=== PATIENT | female | born 1950 | race Caucasian/White ===

== ENCOUNTER → 2019-08-25 | Emergency (ER) | payer MEDICARE, OTHER ==
[~2019-08-25] VITALS: Ht 157.5 cm; Wt 39.9 kg
[~2019-08-25] MED LIST: ACETAMINOPHEN500 MG PO; NORCO 5-325 TA1 EACH PO
--- OUTSIDE RECORDS SUMMARY | ~2019-08-25 | XMS | Clinical Summary ---
Demographics + + + | Address | [address] | | | [place] [address] | + + + | Home Phone | | + + + | Preferred Language | Unknown | + + + | Marital Status | Single | + + + | Synagogue Affiliation | 1027 | + + + | Race | Unknown | + + + | Ethnic Group | Unknown | + + + Author + + + | Author | [facility] | | | and [place] | + + + | Organization | [facility] | | | and [place] | + + + | Address | Unknown | + + + | Phone | Unavailable | + + + Support + + +---------+ + | Name | Relationship | Address | Phone | + + +---------+ + | MARION BENNETT | ECON | Unknown | | + + +---------+ + Care Team Providers + +------+ + | Care Sound Technician Supervisor Name | Role | Phone | + +------+ + PCP | Unavailable | + +------+ + Allergies Not on File Medications Not on file Active Problems Not on file Social History + +-------+ +--------+------+ | Tobacco Use | Types | Packs/Day | Years | Date | | | | | Used | | + +-------+ +--------+------+ | Never Assessed | | | | | + +-------+ +--------+------+ + + + | Sex Assigned at | Date Recorded | | | | + + + | Not on file | | + + + + + + + | Job Start Date | Occupation | Industry | + + + + | Not on file | Not on file | Not on file | + + + + + + + + | Travel History | Travel Start | Travel End | + + + + + + | No recent travel history available. | + + Last Filed Vital Signs Not on file Plan of Treatment + + + + + | Health Maintenance | Due Date | Last Done | Comments | + + + + + | Vaccine: | | | | | Dtap/Tdap/Td (1 - | 0 | | | | Tdap) | | | | + + + + + | Vaccine: Zoster (1 | | | | | of 2) | 1 | | | + + + + + | Breast Cancer | | | | | Screening | 6 | | | + + + + + | Vaccine: | | | | | Pneumococcal 65+ | 6 | | | | Low/Medium Risk (1 | | | | | of 2 - PCV13) | | | | + + + + + | Vaccine: Influenza | | | | | (#1) | 9 | | | + + + + + Results Not on filefrom Last 3 Months"
--- OUTSIDE RECORDS SUMMARY | ~2019-08-25 | XMS | Clinical Summary ---
Demographics + + + | Address | [address] | | | [place] [address] | + + + | Home Phone | | + + + | Preferred Language | Unknown | + + + | Marital Status | Single | + + + | Yarsani Affiliation | 1027 | + + + | Race | Unknown | + + + | Ethnic Group | Unknown | + + + Author + + + | Author | [facility] | | | and [place] | + + + | Organization | [facility] | | | and [place] [...] Team Providers + +------+ + | Care Workers Compensation Legal Secretary Name | Role | Phone | + [...]
== END ==
LOC: ED 10:27
DX: S42.202A Unspecified fracture of upper end of left humerus, initial encounter for closed fracture (principal); F17.200 Nicotine dependence, unspecified, uncomplicated; W18.30XA Fall on same level, unspecified, initial encounter
CPT/HCPCS: 73060; 99283

== ENCOUNTER 2022-04-26 14:20 | Emergency (ER) | payer MEDICARE, OTHER ==
[~2022-04-26] VITALS: Ht 157.5 cm; Wt 39.9 kg
--- NOTE | ~2022-04-26 | EKG ---
[facility] [address] [place], [place] [address] Draft EK completed, results pending confirmation PATIENT NAME: JOSE BENNETTZoran SCOTT Electrocardiogram DATE OF : 52 PHYSICIAN: PRELIMINARY REPORT #: [id number] REPORT IS CONFIDENTIAL AND NOT TO BE RELEASED WITHOUT AUTHORIZATION
[2022-04-26] MEDS ORDERED: FEOSOL325 MG PO (18:41)
[2022-04-27] MEDS ORDERED: VENTOLIN HFA18 GM INH (18:27)
[2022-04-27] MEDS ORDERED: QVAR REDIHALE10.6 GM INH (18:27)
== END 2022-04-26 19:35 | disposition home or self-care (01) ==
LOC: ED 14:20
DX: D64.9 Anemia, unspecified (principal); F17.200 Nicotine dependence, unspecified, uncomplicated
CPT/HCPCS: 36415; 36430; 71045; 80053; 83735; 84484; 85018; 85025; 85060; 85379; 86850; 86900; 86901; 86922; 87502; 93005; 93010; 99284-25; U0003

== ENCOUNTER 2022-08-28 13:03 | Inpatient (IN) | payer MEDICARE, OTHER ==
[~2022-08-28] VITALS: Ht 157.5 cm; Wt 39.0 kg
[~2022-08-28 13:03] MED LIST changes: +FEOSOL325 MG PO; +QVAR REDIHALE10.6 GM INH; +VENTOLIN HFA18 GM INH
--- NOTE | 2022-08-28 22:17 | NUR ---
PATIENT ARRIVED TO THE FLOOR VIA STRETCHER. PATIENT XFERED TO BED BY STAFF. PATIENTS ADMISSION COMPLETED. ASSESMENT COMPLETED. PATIENT DENIES ANY PAIN AT REST ONLY W/MOVEMENT. PATIENT IS ON 2L VIA NC AND IS NOT CHRONIC. PATIENTS RIGHT ARM IS IN A CUFF AND COLOR. PATIENT PLACED IN HOSPITAL GOWN. VITALS TAKEN AND RECORDED. PUSH BUTTON CALL LIGHT PROVIDED. PATIENT IS AAOX4. PATIENT DENIES ANY NEEDS AT THIS TIME. ORIENTED TO FLOOR, CALL LIGHT AND PLAN OF CARE.
--- NOTE | 2022-08-28 23:14 | NUR ---
PATIENT IS RESTING IN BED WITH EYES CLOSED, RR 16. CALL LIGHT IN REACH. BED ALARM ON FOR SAFETY.
--- NOTE | 2022-08-29 00:26 | NUR ---
PATIENT ASSISTED TO REPOSITION. PATIENT RATES PAIN AT A 2/10 AND DENIES THE NEED FOR PAIN MEDICATION AT THIS TIME. PATIENT DENIES ANY FURTHER NEEDS. CALL LIGHT IN REACH.
--- NOTE | 2022-08-29 02:17 | NUR ---
PATIENT ASSISTED TO THE BEDPAN. PATIENT ABLE TO VOID. VITALS TAKEN AND RECORDED. INTAKE AND OUTPUT RECORDED. PATIENT REPOSITIONED IN BED. PATIENT RATES PAIN AT A 5/10, PRN PAIN MEDICATION GIVEN PER ORDER. PATIENT PROVIDED A SNACK AND SIPS OF WATER. PATIENT DENIES ANY FURTHER NEEDS. CALL LIGHT IN REACH. BED ALARM ON FOR SAFETY.
--- NOTE | 2022-08-29 03:57 | NUR ---
PATIENT IS RESTING IN BED WITH EYES CLSOED, RR 17. CALL LIGHT IN REACH.
--- NOTE | 2022-08-29 05:56 | NUR ---
VITALS TAKEN AND RECORDED. INTAKE AND OUTPUT RECORDED. PATIENT RATES PAIN AT A 1/10 AND DENIES THE NEED FOR PAIN MEDICATION AT THIS TIME. PATIENT REPOSITIONED IN BED. PATIENT ASSISTED TO TAKE SIPS OF WATER. PATIENT DENIES ANY NEEDS. CALL LIGHT IN REACH.
--- NOTE | 2022-08-29 07:19 | NUR ---
RECIEVED SHIFT REPORT. PT LAYING IN BED AWAKE DRINKING HOT FERNANDO. WITH SLD TEACHER AT BEDSIDE. CALL BUTTON IN REACH.
--- NOTE | 2022-08-29 09:40 | NUR ---
PT C/O 03/13 RIGHT ARM PAIN, GIVEN PRN PAIN MEDICATIONS. DENIES FURTHER NEEDS AT THIS TIME. CALL LIGHT IN REACH.
--- NOTE | 2022-08-29 10:37 | NUR ---
PT IN BED RESTING. DENIES ANY PAIN AT THIS TIME. REMOVED OXYGEN. PT DENIES FURTHER NEEDS AT THIS TIME.
--- NOTE | 2022-08-29 11:23 | NUR ---
PT RESTING IN BED. CASE MANAGEMENT AT BEDSIDE. CALL BUTTON IN REACH.
--- NOTE | 2022-08-29 11:52 | NUR ---
Patient fell at home and broke right Humerus. Unable to use walker. MD will Fix Fracture this week.Patient will need help with mobility because she can no longer use her walker or wheelchair until FX. is healed
--- NOTE | 2022-08-29 12:13 | NUR ---
PT COMPLAINED OF PAIN AT THIS TIME. EXPLAINED PRN MEDICATION SCHEDULE AND PT WAS COMPLIANT WITH WAITING. CALL BUTTON WITHIN REACH. DENIES FURTHER NEEDS.
--- NOTE | 2022-08-29 13:09 | NUR ---
PT RESTING IN BED, EYES CLOSED. CALL LIGHT WITHIN REACH.
--- NOTE | 2022-08-29 14:35 | NUR ---
PT LAYING IN BED RESTING. DENIES FURTHER NEEDS AT THIS TIME. CALL LIGHT WITHIN REACH.
--- NOTE | 2022-08-29 15:28 | NUR ---
PT LAYING IN BED AWAKE. PT STATES PAIN LEVEL REMINS THE SAME 5/10 FROM LAST GIVEN PRN MEDICATION AND IS AWARE OF SCHEDULE. PT RIGHT EXTREMITY ELEVATED ON A PILLOW. DENIES ANY FURTHER NEEDS AT THIS TIME. PUSH BUTTON IN REACH.
--- NOTE | 2022-08-29 16:45 | NUR ---
PT LAYING IN BED AWAKE. DENIES FURTHER NEEDS. CALL LIGHT WITHIN REACH.
--- NOTE | 2022-08-29 21:37 | NUR ---
pt repositioned in bed, used urinal, very sensitive to movement. voided, repoositioned again. R arm sling in place, edematous at shoulder area, moves it slightly, pulses present. coop with assessment. SL [facility] patent
--- NOTE | 2022-08-29 22:24 | NUR ---
HOB ELEVATED, R ARM SLING IN PLACE, EYES CLOSED, NO DISTRESS, CALL LIGHTT AND FLUIDS AT HANDS REACH
--- NOTE | 2022-08-30 01:32 | NUR ---
PT USED CALL LIGHT, UP TO BEDPAN, VOIDED, C/O 5/10 R ARM PAIN, MEDICATED WITH 1 NORCO, REPOSITIONED AND TURNED, COOP
--- NOTE | 2022-08-30 03:43 | NUR ---
NO FURTHER C/O PAIN, EYES CLOSED, ON ROOM AIR, SLING R ARM
--- NOTE | 2022-08-30 04:21 | NUR ---
PT ON ROOM AIR, NO DISTRESS, SLING R ARM, ELEVATED WITH PILLOWS, . CALL LIGHT AT BEDSIDE
--- NOTE | 2022-08-30 05:29 | NUR ---
HOB ELEVATED, IN ROOM AIR, NO DISTRESS, C/O 5/10 R ARM PAIN. SLING INPLACE, TENDER, PAINFUL TO MOVEMENT, MEDICATED WITH NORCO 1 TAB. PLEASANT AND COOP. TOLERATING SIPS OF FLUIDS WELL. HELPED WITH REPOSITIONING
--- NOTE | 2022-08-30 07:15 | NUR ---
RECIEVED SHIFT REPOR. PT RESTING IN BED, EYES CLOSED. CALL LIGHT WITHIN REACH.
--- NOTE | 2022-08-30 08:45 | NUR ---
ASSESSMENT COMPLETE. PT STATES SHE IS IN PAIN BUT IS AWARE OF THE PRN SCHEDULE. RIGHT SHOULDER SLING IN PLACE AND ELEVATED ON A PILLOW. TALKED WITH PATIENT REGARDING GETTING UP AND MOVING AROUND, IN WHICH PT REFUSES TO DO SO. IV DRESSING CHANGED AT THIS TIME. PT CONTIUNES TO BE ANXIOUS WITH THE POC AND HAVING TO GET UP AND MOVE AROUND. CALL LIGHT WITHIN REACH.
--- NOTE | 2022-08-30 08:45 | NUR ---
CAlled and spoke with Tacho from [facility]. They have hemicrutch to loan. Asked if they could hold for this pt. He states they will only hold equipment for 1 day.
--- NOTE | 2022-08-30 09:15 | NUR ---
Faxed chart to [facility] after speaking with Dr. Reyes. He would like pt place for therapy. Pt is agreeable to go. Pt has not been vaccinated for covid and this maybe an issue.
--- NOTE | 2022-08-30 09:30 | NUR ---
PT C/O 04/13 RIGHT ARM PAIN, GIVEN PRN NORCO SEE EMAR. DENIES FURTHER NEEDS AT THIS TIME. CALL LIGHT IN REACH.
--- NOTE | 2022-08-30 10:15 | NUR ---
IN ROOM TO REPOSITION PT. PT ASKS "WHY DO YOU HAVE TO DO THAT I CAN MOVE AND LIFT MY BUTT JUST FINE". EXPLAINED TO PT THE HOW THIS WILL DECREASE THE CHANCE OF POTENTIAL BEDSORES DUE TO NOT GETTING UP AND MOVING AROUND. PT CONTIUNED TO SAY SHE WAS NOT GETTING UP OUT OF BED. PT REPOSITIONED WITH PILLOW UNDER LEFT HIP AND RIGHT ARM ON A PILLOW. PT NOT SATISFIED BUT WAS WILLING TO "TRY IT".
--- NOTE | 2022-08-30 10:50 | NUR ---
Spoke with pt and she is willing to go to a SNF. Let her know [facility] is not currently taking pts. She is agreeable for [facility]. Pt has not been vaccinated. Faxed chart to [facility].
--- NOTE | 2022-08-30 12:27 | NUR ---
PT ABLE TO STAND 2PA, PIVOT, WITH THE USE OF JANETT-WALKER. PT WAS GIVEN DILUADID (SEE EMRAR) PRIOR TO TRANSFER. PT TOLERATED WELL. LEGS ELEVATED, CALL BUTTON IN REACH.
--- NOTE | 2022-08-30 13:00 | NUR ---
Recieved text from [facility]. They will not accept this pt as there is not a save discharge plan. 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
[2022-08-30] MEDS ORDERED: QVAR REDIHALE10.6 G1 INH (13:21)
--- NOTE | 2022-08-30 13:30 | NUR ---
Texted Yulia from OT. Let her know [facility] has a hemicrutch available and I will ask if family will knot picker cloth. She states pt is refusing all therapy. Will wait until after her surgery to see what pt will need.
--- NOTE | 2022-08-30 14:18 | NUR ---
PT C/O 03/13 RIGHT ARM PAIN, GIVEN PRN NORCO. PT REQUESTS TO GO BACK TO BED, SPOKE AT LENGTH REGARDING BEING OUT OF BED, PT CONTINUES TO REQUEST GOING TO BED. ASSISTED 2 PERSON PIVOT TO BED FROM RECLINER. SCDS PLACED. PT DENIES FURTHER NEEDS AT THIS TIME. CALL LIGHT IN REACH.
--- NOTE | 2022-08-30 15:00 | NUR ---
Received a call from Gauri Rich at [facility] with questions regarding this pt. 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 Pt is over income and will not qualify.
[2022-08-30] MEDS ORDERED: IRON325 M1 PO (15:07)
[2022-08-30] MEDS ORDERED: VITAMIN D325 MCG PO (15:07)
--- NOTE | 2022-08-30 15:08 | NUR ---
MED REC COMPLETE
--- NOTE | 2022-08-30 15:48 | NUR ---
PT LAYING IN BED, AWAKE. DENIES ANY NEEDS AT THIS TIME. STATES PAIN IS 4/10 BUT TOLERABLE. CALL LIGHT WITHIN REACH.
--- NOTE | 2022-08-30 16:56 | NUR ---
TIA AND I GAVE PATIENT A BED BATH ALSO WE PUT LOTION ON HER LEGS AND FEET. NEW GOWN AND SHEET. WHILE I WAS AT LUNCH AT NOON TIA CHANGED THE BED LINENS.
--- NOTE | 2022-08-30 18:21 | NUR ---
PT LAYING IN BED, COMPALING OF PAIN 04/13. PRN NORCO GIVEN (PER EMAR). CALL BUTTON IN REACH. DENIES FURTHER NEEDS AT THIS TIME.
--- NOTE | 2022-08-30 21:34 | NUR ---
r arm in sling, tender to tocuh, increaed edema noted at R chest and shoulder area. moves arms very slow, up to bedpan, voided, skin care, repositioned in bed. sl patent LFA. tolerating liquids well. aware of NPO after midnight and wipedown and bed changing in am, stated understanding. uses call light
--- NOTE | 2022-08-30 22:33 | NUR ---
repositioned in bed, c/o R arm pain, elevated w sling, and pillows, good cms, tender. Medicated with [place] 6/10 R amr pain. cooperative, aware of NPO after midnight
--- NOTE | 2022-08-31 00:39 | NUR ---
AWAKE, FLUIDS REMOVED EARLIER, NPO. USED BEDPAN, VOIDED, REPOSITIONED IN BED, ORAL SWABS AT BEDSIDE, CALL LIHGT AT HANDS REACH.R AMS SLING IN PLACE.
--- NOTE | 2022-08-31 04:27 | NUR ---
Pt c/o 05/13 R arm pain, medicated with 1norco and took with small sips of water, repositioned in bed, voided using urinal, Otherwise has been NPO since midnight
--- NOTE | 2022-08-31 05:11 | NUR ---
Pt medicated with DIlaudid 0.5mg IV per 06/13 R amr pain, pe up to chair chloxenedine wipe down done, R arm sling in place. painful, reassured. complete bed change and gown chaged, clean SCDS in place. pivot transfer utilized when going from bed to chair, after many cues, pt reassaured, afraid of falling. Screaming and anxious, reassured and calmed down. on return she require 2PA, slow unsteady gait but much calme/anxious but able to follow instructuctions better, backa to bed tolerated better.R arm elevated with pillows has declined ice to area since admission. call lihgt at bedside, oral care done. preop and post op expectation given verbally, reassured cont to reinforce teaching
--- NOTE | 2022-08-31 07:00 | NUR ---
Report from Katherine Sierra RN. Patient resting in bed with eyes closed, respirations even and unlabored. Sling remains in place. Allowed to rest at this time.
--- NOTE | 2022-08-31 07:50 | NUR ---
PATIENT TAKEN TO SURGERY BY ELISSA MCGEE, IN BED.
--- NOTE | 2022-08-31 10:13 | NUR ---
OVER TO CHECK IN ON PATIENT, PATIENT CURRENTLY IN OR. WILL CHECK BACK WITH PATIENT AT A LATER TIME.
--- NOTE | 2022-08-31 11:19 | NUR ---
08/31/22 Walter9 [place] 1115- PT ARRIVES TO PACU NONAROUSABLE TO STIMULI WITH AN OPA IN PLACE. RESP EVEN AND UNLABORED. OXYGEN SAT HIGH 100% ON 6L VIA MASK. ICE PACK APPLIED TO PT'S RIGHT ARM WITH GOWN IN BETWEEN ICE PACK AND SKIN.
--- NOTE | 2022-08-31 11:45 | NUR ---
Patient returns from PACU in bed with ELISSA Aguilera. Patient alert and oriented. Vitals obtained. Ice over right shoulder, arm in sling. Dressings X2 to right shoulder C/D/I. Denies pain at this time. Pulses and cap refill to right arm WNL.
--- NOTE | 2022-08-31 12:37 | NUR ---
Report to ELISSA Coppola
--- NOTE | 2022-08-31 12:51 | NUR ---
1 PERSON ASSIST TO BSC, CONTINENT OF URINE. RETURNS TO BED. DENIES PAIN AT THIS TIME. VITAL OBTAINED, ASSIST TO REPOSITION. OXYGEN DECREASED TO 1L/MIN PER NC OXYGEN PER PATIENT REQUEST, SHE WOULD LIKE TO HAVE IT REMOVED.
--- NOTE | 2022-08-31 13:48 | NUR ---
3RD SET OF POST OP VIALS DONE, STABLE. O2 91% ON 2l PER NC. PT STATES PAIN 3/10 IN RIGHT WRIST/FORARM. REPOSITIONED ARM ON PILLOW FOR COMFORT. PT TRIED TO HAVE ORANGE JUICE BUT DIDN'T LIKE IT. OFFERED JELLO, OTHER ITEMS ON CLEARS TRAY, PT DECLINED. CALL LIGHT AND PERSONAL ITEMS IN REACH, PT STATED NO FURTHER NEEDS.
--- NOTE | 2022-08-31 15:38 | NUR ---
PT CALLED TO ASK FOR PAIN MEDICATION. PT STATES SHE HAS 7/10 PAIN IN BOTH ARMS. PRN NORCO GIVEN ALONG WITH CRACKERS. DR SALINAS IN TO SEE PT WELL. PAIN IN BED, SCD'S ON, CALL LIGHT AND PERSONAL ITEMS IN REACH.
--- NOTE | 2022-08-31 17:51 | NUR ---
IN ROOM TO ADMINISTER IV ABX. PT SITTING UP IN BED EATING DINNER. 25% OF MEAL TAKEN. PAIN IN RIGHT ARM AT 4/10. PT REQUESTING HELP WITH TV CLICKER IT IS HARD FOR HER TO PUSH THE BUTTONS WITH HER NONDOMINANT HAND. NO OTHER NEEDS AT THIS TIME. CALL LIGHT AND PERSONAL ITEMS IN REACH.
--- NOTE | 2022-08-31 18:00 | NUR ---
PATIENT IN BED AFTER MEAL. VITALS AND I/O'S COMPLETED. PT HAS NO OTHER NEEDS AT THIS TIME. CALL LIGHT IN REACH.
--- NOTE | 2022-08-31 19:21 | NUR ---
oNE TAB NORCO 5/325MG PO ADMIN FOR REPORTED 6/10 RIGHT ARM PAIN.
--- NOTE | 2022-08-31 19:54 | NUR ---
Pt was medicated at change of shift per R arm pain. awake, alert and oriented. on 1LNC, post op CPOX in place. R arm in sling, x2 dressings Opticot covered w opsite intact with old drainage. good CMS, tender, fresh ice to area. Turned and repositioned after several cues. Call light and fresh fluids at hands reach
--- NOTE | 2022-08-31 19:55 | NUR ---
IN ROOM TO ASSIST PRIMARY RN GINA WITH BOOSTING pt. pt AWAKE AND RESTING IN BED, CPOX IN PLACE. pt VERY PARTICULAR WITH CARES, pt REFUSES TO WEAR ATTENDS AND ALSO REFUSED TO LET [employer] AGENT PLACE CHUCKS UNDER pt. pt EDUCATED ON PURPOSE OF CHUCKS AND THAT IT ALLOWS FOR EASIER CLEANUP. pt THEN AGREED TO ALLOW STAFF TO PLACE CHUCKS UNDER DRAWSHEET. FRESH WATER ALSO PROVIDED. NO ADDITIONAL NEEDS, CALL LIGHT IN REACH.
--- NOTE | 2022-08-31 22:25 | NUR ---
PATIENT UP TO BSC 1 PERSON STBY, PATIENT ABLE TO STAND SELF TRANSFER TO BSC. VOIDED 185 ML OF CLOUDY URINE. PATIENT THEN ABLE TO SELF TRANSFER BACK TO BED, ACTIVITY TO TOILET TOOK 25 MINUTES WITH PATIENT'S SMALL STEPS TO BED. ONCE BACK TO BED PATIENT RATED PAIN 6/10 ON PAIN SCALE, STATED TOLERABLE BUT REQUESTING PAIN MEDICAITON WHEN TIME ALLOWS. OXYGEN ON ROOM AIR 89%, PLACED BACK ON 2L WITH CONT PULSE OX. SCDS ON, CHANGED BEDDING. CALL LIGHT AND PERSONAL BELONGINGS WITHIN REACH. REPORTED FINDINGS TO PRIMARY NURSE GINA BOWERS.
--- NOTE | 2022-08-31 23:28 | NUR ---
C/O 10/10 R ARM PAIN, ARM SLING IN PLACE, ICE TO AREA , ELEVATED WITH PILLOWS, GOOD CMS. MEDICATED WITH NORCO 1 TAB, TOLERATING SIPS OF FLUIDS. WORKED WITH IS , UP TO 600, COOPERATIVE, CALL LIGHT ART HANDS REACH
--- NOTE | 2022-09-01 01:20 | NUR ---
awake, c/o mild pain r arm with turning and repositioning, was medicated earlier. on 1LNC, post op CPOX inplace sats 93% no distress. LSL in place, patent. no c/o adverse reaction to abx. tolerating sips of fluids well. R arm CMS well.
--- NOTE | 2022-09-01 02:23 | NUR ---
resating, hob elevated, eyes closed, on 1lnc, cpox post op in place, sats 91%. sling R amr, elevated in pillow. call light at hands reach
--- NOTE | 2022-09-01 03:02 | NUR ---
pt resting, eyes closed, no distress, call light at bertha reach
--- NOTE | 2022-09-01 04:06 | NUR ---
pT RESTING, ON 1LNC, NO DISTRESS, HOB ELEVATED, EYES CLOSED, R ARM IN SLING, CALL LIGHT AND FLUIDS AT BEDSIDE
--- NOTE | 2022-09-01 04:46 | NUR ---
pt used call light, medicated with norco 1 tab, sips of fluids, declines need for voiding, R arm sling inplace, dressing with old drainage. fresh fluids given
--- NOTE | 2022-09-01 04:47 | NUR ---
Pt has been awake off and on. was on O2 1LNC on return from PACU, and post op CPOX, sats 91-93%. O2 and CPOX dc'd at this time O2 room air 90% on room air, worked on IS up to 600. tolerated fair, continue to encourage IS usage. Sling R arm in place, dressing x2 with old drainage, edema to inner upper arm present, good CMS, pulses strong, encouraged to move arm as per PT. elevated in pillows and ice to area. Was up to BSC, voided small amount dark cloudy urine. denies c/o urinary problems. Cont to reassure, praise efforts, fall precautions and encourage increasing self ADL;s and fee with left hand. very resistance to using L arm too. call light and fluids t hands reach. pleasnt and coop/ Asks and has received Sc[place] 1 tab Q4H per R arm pain, effective. Very resistive to turning or repositioning requiring many cues, Cont to encourage.
--- NOTE | 2022-09-01 06:53 | EKG ---
[facility] [address] [place], [place] [address] Signed Normal sinus rhythm Low voltage QRS Borderline ECG When compared with ECG of 26-APR-2022 14:58, No significant change was found Confirmed by JONATHON SALINAS MD ([id number]) on 09/01/2022 6:53:15 AM Electronically Signed By: JONATHON SALINAS MD 09/01/22 0653 PATIENT NAME: MIKAYLA BENNETT Electrocardiogram DATE OF : 52 PHYSICIAN: JONATHON SALINAS MD REPORT #: [id number] REPORT IS CONFIDENTIAL AND NOT TO BE RELEASED WITHOUT AUTHORIZATION
--- NOTE | 2022-09-01 08:10 | NUR ---
MORNING ASSESSMENT COMPLETE. RIGHT ARM IN SLING, SURGICAL DRESSING CDI, RADIAL PULSES STRONG, CAP REFILL <3SEC, CMS INTACT. PT STATES PAIN 3/10 AND TOELRABLE AT THIS TIME. DISCUSSED IMPORTANCE OF GETTING OUT OF BED, MOBILITY FOR DECREASED RISK OF DVT, PNA, AND SKIN BREAKDOWN. PT REFUSES TO GET OUT OF BED TO CHAIR AT THIS TIME. STATES SHE WILL MOVE AT LUNCH. CALL LIGHT IN REACH. PT DENIES FURTHER NEEDS AT THIS TIME.
--- NOTE | 2022-09-01 08:14 | NUR ---
PT IN BED. SYLVIA AND I ENCOURAGED OUT OF BED INTO CHAIR FOR BREAKFAST. PT REFUSED, SAID SHE WOULD GET UP FOR LUNCH. WE PULLED HER UP IN BED AND PROVIDED A NEW ICE PACK. NURSE NOTIFIED OF REFUSAL.
--- NOTE | 2022-09-01 08:46 | NUR ---
pt c/o 04/13 r arm pain, given rpn norco see emar. denies further needs at this time. call light in reach.
--- NOTE | 2022-09-01 08:50 | OR ---
[facility] [address] [facility] [place] [address] Signed DATE OF OPERATION: 08/31/2022 SURGEON: Alcira Reyes MD PREOPERATIVE DIAGNOSIS: Displaced right proximal humerus fracture. POSTOPERATIVE DIAGNOSIS: Displaced right proximal humerus fracture. PROCEDURE PERFORMED: Open reduction and internal fixation, right proximal humerus. SUPERVISOR POLE YARD: SANDY Estrada ANESTHESIA: General. BLOOD LOSS: 75 mL. IMPLANTS: Branden proximal humerus parker 11 x 165 with four screws proximally and two screws distally. 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 She suffered a ground-level fall, fracturing her humerus. Because she uses a walker to ambulate and get in and out of a chair, she needs her upper extremities. She does live alone as well. We discussed the option of IM rodding her humerus to loss some weightbearing. She would like to proceed. Evaluation and positioning were extremely difficult secondary to extensive kyphosis and a little bit of scoliosis. We did eventually get her positioned where she was comfortable. DESCRIPTION OF PROCEDURE: After establishment of general anesthesia, the right arm was prepped and draped in a standard sterile fashion. The proximal approach was made from the anterior corner of the acromion and extended distally 3 inches. It was taken through skin and subcutaneous tissue. The anterior raphae of the deltoid was then split and the underlying bursa was removed. The rotator cuff was extremely edematous and in poor condition. The rotator Electronically Signed By: ALCIRA REYES MD 09/01/22 0850 PATIENT NAME: MIKAYLA BENNETT OPERATIVE REPORT DATE OF : 52 REPORT #: [id number] PHYSICIAN: ALCIRA REYES MD PCP: BANDAR BOCANEGRA MD REPORT IS CONFIDENTIAL AND NOT TO BE RELEASED WITHOUT AUTHORIZATION [facility] [address], [place] [address] Signed cuff was then split and the guide pin for the humeral parker was then visualized in a center-center position using fluoroscopy and extended from the proximal humerus down the shaft of the humerus. The bone quality was extremely poor, no power was used for this. The 11 mm proximal reamer was then used to open the humerus and by hand we went down with 9 and 11 mm reamer down the shaft with essentially no significant cortical chatter. We elected to go with the 11 x 165 humeral parker. This was placed on the appropriate insertion instruments and placed through the opening in the humerus and down across the fracture into the body of the humerus distally. We then centered on the humeral head and placed the three proximal screws and one screw just below from anterior to posterior. Once this was accomplished, the humeral shaft was lined up and the two distal locking screws were percutaneously placed with care taken to make a skin incision only and then spread down bluntly to the bone before advancing the drill guide assembly. All screws were appropriate length on final radiographs. The wounds were copiously irrigated with normal saline. The deltoid and rotator cuff were closed independently using #1 Vicryl, subcutaneous tissue with 3-0 0 Stratafix, and bony for all skin incisions. The wounds were then dressed, cleansed and dressed with Allevyn dressings and OpSites. She tolerated the procedure well. All sponge, needle, and instrument counts were correct. Alcira Reyes MD BA/MODL /[id number] Copies: ~ Electronically Signed By: ALCIRA REYES MD 09/01/22 0850 PATIENT NAME: MIKAYLA BENNETT OPERATIVE REPORT DATE OF : 52 REPORT #: [id number] PHYSICIAN: ALCIRA REYES MD PCP: BANDAR BOCANEGRA MD REPORT IS CONFIDENTIAL AND NOT TO BE RELEASED WITHOUT AUTHORIZATION
--- NOTE | 2022-09-01 10:01 | NUR ---
PT IN BED. VITALS AND I/O DOCUMENTED. FRESH ICE WATER PROVIDED TO PT. NO FURTHER NEEDS AT THIS TIME CALL LIGHT IS WITHIN REACH.
--- NOTE | 2022-09-01 10:02 | NUR ---
pt resting awake in bed, call light in reach.
--- NOTE | 2022-09-01 11:33 | NUR ---
ASSISTED PT FROM BED TO [facility] 2 PA ASSIST. PT TOLERATED WELL. PT BACK TO BED, PHYSICAL THERAPY TO GO INTO ROOM. PT DENIES FURTHER NEEDS AT THIS TIME. CALL LIGHT IN REACH.
--- NOTE | 2022-09-01 12:05 | NUR ---
pt sitting up in recliner, call light in reach.
--- NOTE | 2022-09-01 13:52 | NUR ---
PT IS IN BED AFTER LUNCH, VITALS AND I/O DOCUMENTED. FRESH WATER PROVIDED TO PT. PT HAS NO OTHER NEEDS AT THIS TIME CALL LIGHT WITHIN REACH.
--- NOTE | 2022-09-01 15:41 | NUR ---
PT C/O 05/13 RIGHT ARM PAIN, GIVEN PRN DILAUDID SEE EMAR. DENIES FURTHER NEEDS AT THIS TIME. CALL ZHOU BUSTAMANTE.
--- NOTE | 2022-09-01 16:43 | NUR ---
PT REPOSITIONED IN BED, C/O 04/13 RIGHT ARM PAIN. REQUESTED AND GIVEN PRN NORCO, SEE EMAR. PT DENIES FURTHER NEEDS AT THIS TIME. VISITOR AT BEDSIDE. CALL LIGHT IN REACH.
--- NOTE | 2022-09-01 18:05 | NUR ---
PT IS SITTING IN CHAIR AFTER DINNER. VITALS AND I/O HAVE BEEN DOCUMENTED. I PROVIDED FRESH ICE WATER TO THE PT. PT HAS NO OTHER NEEDS AT THIS TIME. CALL LIGHT IS WITHIN REACH.
--- NOTE | 2022-09-01 18:21 | NUR ---
PT SITTING UP IN RECLINER. STATES PAIN HAS IMPROVED TO 2/10. DENIES FURTHER NEEDS AT THIS TIME. CALL LIGHT IN REACH.
--- NOTE | 2022-09-01 21:00 | NUR ---
ASSESSMENT COMPLETE, pt RECENTLY MEDICATED WITH PRN PAIN MEDICATION FROM OBGYN HOSPITALIST PHYSICIANELISSA CONN. pt REPORTS PAIN 05/13-SEE EMAR. pt A/OX4, CALLS APPROPRIATELY. pt UP 1-2PA WITH HEMIWALKER TO [facility] [place] [place] TO VOID. MARISEL CARE DONE AND pt BACK TO BED-TOLERATED WELL AND STAND PIVOTING IMPROVING. pt BOOSTED IN BED. ACTOCOAT DRESSING X2 INTACT WITH SCANT OLD SHADOWING, CMS INTACT. STRONG EQUAL PEDAL AND RADIAL PULSES. SKIN WARM TO THE TOUCH AND PINK IN COLOR. pt DENIES NUMBNESS AND TINGLING. SLING REMAINS IN PLACE TO RIGHT SHOULDER PER MD ORDERS. IV SITE WNL TO LEFT WRIST, FLUSHES EASILY WITH BRISK BLOOD RETURN. IV SITE EMS START PER ASSESSMENT-pt EDUCATED ON ROUTINE IV CHANGE W/ EMS STARTS PER PROTOCOL. pt STATES, "I DON'T WANT TO BE POKED ANYMORE". pt REFUSED NEW IV AT THIS TIME. NO ADDITIONAL NEEDS, SCD'S ALSO OFF PER pt REQUEST. pt DEMONSTRATED USE OF IS. WILL CONTINUE TO MONITOR.
--- NOTE | 2022-09-01 23:45 | NUR ---
DR SALINAS AT RN STATION AND AWARE OF pt's REFUSAL EARLIER IN SHIFT TO PLACE NEW IV D/T CURRENT IV BEING EMS START. CURRENT IV WNL AND HAS BRISK BLOOD RETURN. OKAY TO LEAVE CURRENT IV IN PLACE AT THIS TIME PER MD AND CAN REEVALUATE LATER IN THE DAY IT IS NEARLY MIDNIGHT. TEAM LEAD SENIA AWARE.
--- NOTE | 2022-09-02 00:27 | NUR ---
ROUNDED ON pt, pt AWAKE AND RESTING IN BED. NO NEEDS OR CONCERNS VERBALIZED. CALL LIGHT IN REACH, WILL MONITOR FOR CHANGES. RIGHT ARM REMAINS IN SLING.
--- NOTE | 2022-09-02 01:05 | NUR ---
PT ASSISTED TO THE BSC, BACK TO BED, BOOSTED, PT REQUESTS PAIN PILL, RN AWARE, NO FURTHER NEEDS AT THIS TIME
--- NOTE | 2022-09-02 01:21 | NUR ---
assessment complete, no acute changes. pt awake and resting in bed, reports 6/10 pain-prn pain medication given (see emar). cms intact to extremities x4. scd's in place. pt demonstrated use of is x10 and reached the 500 marker. assistance provided with water, no further needs. call light in reach.
--- NOTE | 2022-09-02 04:12 | NUR ---
ROUNDED ON pt, pt RESTING IN BED WITH EYES CLOSED. ON RA, RR EVEN AND UNLABORED. NO DISTRESS NOTED. RIGHT ARM REMAINS IN SLING AND PILLOW IN PLACE UNDER SLING. NO DISTRESS NOTED, SCD'S REMAIN IN PLACE AND CALL LIGHT IN REACH.
--- NOTE | 2022-09-02 04:43 | NUR ---
2410 pt called to use the bathroom. Independent, slowly moves to side of bed, and stands up, staff are contact guard for safety. Her left foot, difficult to pivot around to commode. Uses drea walker. Voided, dependent on staff to clean, back to bed, and dependent on staff to lift legs into bed. Repositioned, pillow supports, call light within reach. Pt requested pain med, given. All supplies within reach.
--- NOTE | 2022-09-02 05:53 | NUR ---
call answered, pt reporting 6/10 pain. prn pain medication given-see emar. no additional needs, call light in reach.
--- NOTE | 2022-09-02 07:10 | NUR ---
REPORT RECEIVED FROM ELISSA VERA. PT LAYING IN BED RR EVEN AND UNLABORED. NO NEEDS IDENTIFIED AT THIS TIME. CALL LIGHT IN REACH.
--- NOTE | 2022-09-02 07:26 | NUR ---
rounded on pt, pt resting quietly in bed, on ra. rr even and unlabored. no distress noted. call light in reach.
--- NOTE | 2022-09-02 07:30 | NUR ---
PT REQUESTING PAIN MEDICATION. NO PRN PAIN MEDICATION AVAILABLE AT THIS TIME. MADE PLANS WITH PT TO ADMINISTER PRN PAIN MEDICATION ONCE AVAILABLE. NO OTHER NEEDS AT THIS TIME. CALL LIGHT IN REACH.
--- NOTE | 2022-09-02 08:10 | NUR ---
PATIENT IN BED THIS AM, PER REQUEST. MORNING CARE COMPLETED. CALL LIGHT WITHIN REACH.
--- NOTE | 2022-09-02 10:04 | NUR ---
ASSISTED PT TO BEDSIDE COMMODE, THEN BACK TO BED. VITALS AND I/O DOCUMENTED. FRESH ICE WATER PROVIDED TO PT, NO FURTHER ASSISTANCE NEEDED AT THIS TIME. CALL LIGHT IS WITHIN REACH.
--- NOTE | 2022-09-02 10:26 | NUR ---
IN ROOM TO ADMINISTER PRN PAIN MEDICATION FOR PAIN 04/13 PER PT, SEE MAR. PT TAKES PO MEDICATION WITH NO ISSUES. ASSESSMENT COMPLETE. DRESSING HAS SCANT AMOUNT OF SEROUSANGENOUS DRAINAGE. DRESSING INTACT. PT REPORTS HAVING A BM THIS MORNING. BOWEL TONES ACTIVE IN ALL QUADRANTS. NO OTHER NEEDS AT THIS TIME. CALL LIGHT IN REACH.
--- NOTE | 2022-09-02 11:45 | NUR ---
IN TO ROUND ON PT. PHYSICAL THERAPY IN ROOM WORKING WITH PT. NO NEEDS FROM THIS RN AT THIS TIME.
--- NOTE | 2022-09-02 13:10 | NUR ---
IN TO ROUND ON PT. PT SITTING UP IN CHAIR. PT REQUESTING TO GO BACK TO BED. ELISSA WALTERS IN ROOM TO ASSIST. PT STANDS AND PIVOTS FROM CHAIR TO BED. SCDs PLACED. NO OTHER NEEDS AT THIS TIME. CALL LIGHT IN REACH.
--- NOTE | 2022-09-02 14:09 | NUR ---
Call light answered, pt requests PRN tylenol for pain, provided, see mar. Ice water refilled. Pt denies other needs, call light in reach
--- NOTE | 2022-09-02 14:22 | NUR ---
PT IN BED AFTER LUNCH. VITALS AND I/O HAVE BEEN DOCUMENTED. PROVIDED FREST WATER TO PT. PT HAS NO OTHER NEEDS AT THIS TIME, CALL LIGHT WITHIN REACH.
--- NOTE | 2022-09-02 15:33 | NUR ---
ASSESSMENT COMPLETE. PT REPORTING PAIN 5/10 WILL GIVE PRN PAIN MEDICATION ONCE AVAILABLE. NO CHANGES FROM PREVIOUS ASSESSMENT. PT SITTING UP IN BE WITH TELEVISION ON. NO OTHER NEEDS AT THIS TIME. CALL LIGHT IN REACH.
--- NOTE | 2022-09-02 16:22 | NUR ---
PT USING CALL LIGHT REQUESTING PAIN MEDICATION. PT REPORTS PAIN 5/10, PRN PAIN MEDICATION GIVEN, SEE MAR. PT SITTING UP IN BED WITH CRACKERS A SNACK. PT TAKES PO MEDICATION WITH NO ISSUES. NO OTHER NEEDS AT THIS TIME. CALL LIGHT IN REACH.
--- NOTE | 2022-09-02 17:25 | NUR ---
IN TO ANSWER CALL LIGHT. PT REQUESTING TOILETING. 2PA WITH ELISSA WALTERS AND JANETT WALKER FROM BED TO COMMODE. TOILETING COMPLETE. 2PA FROM COMMODE TO CHAIR. BLE ELEVATED IN RECLINER PER PT REQUEST. CALL LIGHT IN REACH. NO OTHER NEEDS AT THIS TIME.
--- NOTE | 2022-09-02 18:10 | NUR ---
PATIENT UP IN CHAIR AFTER MEAL BY REQUEST. VITALS AND I/O'S COMPLETED. ICE WATER GIVEN. PT HAS NO OTHER NEEDS AT THIS TIME. CALL LIGHT WITHIN REACH.
--- NOTE | 2022-09-02 19:48 | NUR ---
RECEIVED REPORT FROM DAY SHIFT RN. PATIENT IS RESTING IN BED WATCHING TV. PATIENT RATES PAIN AT A 3/10 AND DENIES THE NEED FOR PAIN MEDICATION AT THIS TIME. CALL LIGHT IN REACH.
--- NOTE | 2022-09-02 20:22 | NUR ---
PATIENT ASSESMENT COMPLETED. PATIENTS VITALS TAKEN AND RECORDED. PATIENT ASSISTED TO TUSE THE BEDPAN. PATIENT ABLE TO VOID. PATIENTS INTAKE AND OUTPUT RECORDED. PATIENT RATES PAIN AT A 5/10, PRN TYLENOL GIVEN PER ORDER. PATIENT PROVIDED FRESH ICE WATER. IV FLUSHED AND SL PER ORDER. NO FURTHER NEEDS NOTED. CALL LIGHT IN REACH.
--- NOTE | 2022-09-02 22:21 | NUR ---
PATIENT REPOSITIONED IN BED. PATIENT RATES PAIN AT A 6/10, PRN PAIN MEDICATION GIVEN PER ORDER. PATIENT PROVIDED SIPS OF WATER. PATIENT DENIES ANY FURTHER NEEDS. CALL LIGHT IN REACH.
--- NOTE | 2022-09-03 | NUR ---
CALL LIGHT ANSWERED. PATIENT REQUESTED BED TRAYLOR. PATIENT VOIDED 250ML. NO OTHER CARE NEEDS AT THIS TIME.
--- NOTE | 2022-09-03 00:01 | NUR ---
PATIENT IS RESTING IN BED. PATIENT JUST VOIDED. PATIENT DENIES ANY NEEDS. CALL LIGHT IN REACH.
--- NOTE | 2022-09-03 02:11 | NUR ---
PATIENT IS RESTING IN BED WITH EYES CLSOED, RR 16. CALL LIGHT IN REACH.
--- NOTE | 2022-09-03 02:50 | NUR ---
PATIENT CALLED TO USE THE BEDPAN. NO OTHER NEEDS AT THIS TIME.
--- NOTE | 2022-09-03 03:11 | NUR ---
PATIENT REPORTS PAIN AT A 6/10, PRN TYLENOL GIVEN PER ORDER. PATIENT REPOSITIONED IN BED. ASSISTED PATIENT TO REPOSITION RIGHT ARM. PATIENT PROVIDED WITH FRESH ICE WATER. PATIENT DENIES ANY FURTHER NEEDS. CALL LIGHT IN REACH.
--- NOTE | 2022-09-03 04:15 | NUR ---
PATIENT REPOSITIONED IN BED. PATIENT RATES PAIN AT A 5/10, PRN PAIN MEDICTION GIVEN PER ORDER. SIPS OF WATER PROVIDED. NO FURTHER NEEDS NOTED. CALL LIGHT IN REACH.
--- NOTE | 2022-09-03 05:48 | NUR ---
PATIENT IS RESTING IN BED. VITALS TAKEN AND RECORDED. INTAKE AND OUTPUT RECORDED. PATIENT OFFERED TO SIT IN RECLINER PATIENT REFUSES TO SIT IN RECLINER AT THIS TIME. NO FURTHER NEEDS NOTED. CALL LIGHT IN REACH. PATIENT RATES PAIN AT A 4/10 AND DENIES THE NEED FOR INTERVENTION AT THIS TIME.
--- NOTE | 2022-09-03 07:43 | NUR ---
REPORT FROM RUBEN MARC RN.
--- NOTE | 2022-09-03 08:54 | NUR ---
MORNING ASSESSMENT IS COMPLETE, PATIENT DID NOT WANT TO GET UP TO CHAIR FOR BREAKFAST, ENDORSES THAT SHE WILL SIT IN CHAIR FOR LUNCH. PATIENT GIVEN 500MG PO TYLENOL FOR 6/10 RIGHT ARM PAIN. ARM IS IN SLING, PILLOW UNDER FOR SUPPORT. LEFT ARM IV FLUSHES WELL AND IS SALINE LOCKED. NO OTHER NEEDS NOTED AT THIS TIME.
--- NOTE | 2022-09-03 10:05 | NUR ---
PATIENT REPORTS 6/10 PAIN AFTER TYLENOL. PATIENT GIVEN 5MG OF PO OXYCODONE FOR PAIN AND IN ANTICIPATION OF WORKING WITH PHYSICAL THERAPY.
--- NOTE | 2022-09-03 11:05 | NUR ---
PT UP IN CHAIR LINENS CHANGED. CALL LIGHT WITHIN REACH
--- NOTE | 2022-09-03 11:25 | NUR ---
[facility] FOR [facility].
--- NOTE | 2022-09-03 11:28 | NUR ---
PATIENT UP TO CHAIR, WORKING WITH PHYSICAL THERAPY. LINENS CHANGED.
--- NOTE | 2022-09-03 12:17 | NUR ---
PATIENT UP TO CHAIR FOR LUNCH, REPORTS PAIN 5/10 AFTER P.O. PAIN MEDICATIONS.
--- NOTE | 2022-09-03 12:59 | NUR ---
PATIENT MOVED FROM CHAIR TO BED WITH 1PA AND JANETT-WALKER. PATIENT REFUSED SCD'S AT THIS TIME, PATIENT HAS AGREED TO GET UP TO CHAIR FOR DINNER, PATIENT ENDORSED THAT SHE PREFERS TO EAT IN BED.
--- NOTE | 2022-09-03 14:23 | NUR ---
INTO SPEAK WITH PATIENT, PATIENT DAUGHTER AT BEDSIDE. ADVISED PATIENT THAT [facility] HAS DECLINED PLACEMENT AT THIS TIME. DISCUSSED [facility] AND [place] BEING THE NEXT CLOSEST LOCATIONS THAT WILL ACCEPT HER INSURANCE. PATIENT DOES NOT WISH TO CONSIDER [facility] THAT IS TOO FAR. WILL CONTACT [facility] AND [facility] FOR BED AVAILABILITY.
--- NOTE | 2022-09-03 14:48 | NUR ---
PER BIJU AT [facility], BEDS AVAILABLE AT THIS TIME. CHART FAXED TO [facility] FOR REVIEW.
--- NOTE | 2022-09-03 14:56 | NUR ---
PATIENT GIVEN P.O. TYLENOL FOR 5/10 RIGHT ARM PAIN. SHANTELLE RODRÍGUEZ IN TO SEE PATIENT.
--- NOTE | 2022-09-03 18:48 | NUR ---
PATIENT GIVEN ONE 500MG TYLENOL FOR 5/10 RIGHT ARM PAIN.
--- NOTE | 2022-09-03 20:38 | NUR ---
CALL LIGHT ANSWERED. ASSISTED PT TO USE BED TRAYLOR TO VOID AN UNMEASURES AMOUNT. STAFF ASSIST WITH MARISEL CARE. 2PA TO REPOSITION IN BED. RIGHT ARM ON PILLOW. SLING REMOVED. ENCOURAGED ROM OF RIGHT ARM. PT MOVING WRIST. ICE PACK COVERED IN PILLOW CASE TO RIGHT ELBOW. NO FURTHER NEEDS. CALL LIGHT IN REACH.
--- NOTE | 2022-09-03 21:07 | NUR ---
FULL BODY ASSESMENT DONE. PATIENT RESTING BACK IN BED. OFFERED TO REMOVE SLING FROM ARM TO ELEVATE ON PILLOW, PATIENT REFUSED. PROVIDED WARM BLANKET. DISCUSSED TIMING OF NEXT PAIN MEDICATION. PATIENT REQUESTED TO HAVE ANOTHER DOSE WHEN ABLE. CALL LIGHT WITHIN REACH.
--- NOTE | 2022-09-03 22:30 | NUR ---
ADMINISTERED PRN PAIN MEDICATION PER JAN. PATIENT APPARS UNCOMFORTABLE, SHIFTING IN BED. PROVIDED CUSHION SUPPORT FOR LEGS, STATES " SINCE YESTERDAY MY LEGS HAVE JUST FELT ACHY" REPOISITONED PATIENT. NO OTHER NEEDS AT THIS TIME. CALL LIGHT WITHIN REACH.
--- NOTE | 2022-09-04 01:07 | NUR ---
CALL LIGHT ANSWERED. 1 PA PATIENT USED THE BED TRAYLOR. NO OTHER NEEDS AT THIS TIME.
--- NOTE | 2022-09-04 02:58 | NUR ---
CHECKED ON PATIENT, PATIENT REPORTS HAS BEEN GETTING GOOD REST, HAS BEEN SLEEPING OTHER THAN GETTING UP TO BSC. NO NEEDS AT THIS TIME. CALL LIGHT WITHIN REACH. .
--- NOTE | 2022-09-04 05:44 | NUR ---
PATIENT REPORTS ABLE TO SLEEP THROUGHOUT THE NIGHT, ONLY WAKING UP A FEW TIMES TO USE BSC. THIS MORNING PATIENT REPORTS PAIN 6/10 ON PAIN SCALE, APPEARS TO BE GRIMACING, REPORTS PAIN IN BOTH ARMS. ADMINISTERED TYLENOL AND OXYCODONE PER JAN. VOIDED QUANTITY SUFFICIENT. HAS BEEN HAVING ACHES IN LOWER LEGS, PATIENT HAS BEEN DOING LEG EXCERCISES FROM THE CHAIR PER PT/OT NOTES AND COULD BE THE SOURCE OF DISCOMFORT. PROVIDED PATIENT WITH PRESSURE MAT TO REST LEGS ON TOP, PATIENT APPEARED TO APPRECIATE THIS. RIGHT ARM IN SLING. NEED TO ENCOURAGE MOTION OF ELBOW, AND ELEVATION OF RIGHT ARM TO DECREASE SWELLING PER MIN ANGELES NOTES. PATIENT IS NOT ADHERENT TO THIS POC, CONTINUEING TO PROVIDE REINFORCEMENT AND EDUCATION WITH TREATMENT.
--- NOTE | 2022-09-04 07:30 | NUR ---
THIS RN RECEIVED SHIFT REPORT FROM ELISSA BETANCOURT. PATIENT RESTING QUIETLY IN FOWLERS POSITION, EYES CLOSED, RESPIRATIONS ARE REGULAR AND EVEN, AND CALL LIGHT IS IN REACH. PATIENT HAS NO NURSE CARE NEEDS AT THIS TIME.
--- NOTE | 2022-09-04 08:01 | NUR ---
THIS RN IN TO SEE PATIENT. PATIENT HAS BEEN RESTING QUIETLY AND SAYS HER PAIN IS DOWN TO 5/10 AT THIS TIME AND SHE IS COMFORTABLE. AM ASEESSMENT COMPLETE. RIGHT ARM ELEVATED ON A PILLOW. ICE WATER REFILLED. PATIENT DENIES ANY CARE NEEDS AT THIS TIME. THE CALL LIGHT IS IN REACH.
--- NOTE | 2022-09-04 08:56 | NUR ---
WENT IN TO CHECK HOW PATIENT WAS DOING. SHE WAS FINISHED WITH HER BREAKFAST. SHE DID KEEP HER STRAWBERRIES TO EAT ON. ADDED A LITTLE SURGAR BECAUSE SHE SAID THEY WERE TWO SORRY.
--- NOTE | 2022-09-04 08:58 | NUR ---
ALSO YESTERDAY I WASHED HER HAIR AND ALSO WASHED HER LEGS AND FEET. ALSO DID MARISEL CARE ON HER. AND WASHED HER BOTTOM AFTER SHE WAS DONE ON THE BED TRAYLOR.
--- NOTE | 2022-09-04 11:35 | NUR ---
PATIENT CALLED ASKING FOR PAIN MEDS. THIS RN IN TO SEE PATIENT WHO IS WORKING WITH OT AT THIS TIME. PATIENT SAYS HER RIGHT ARM PAIN IS 6/10 AND SHE WOULD LIKE TYLENOL AND OXYCODONE TO TAKE TOGETHER AND BOTH MEDICATIONS WERE GIVEN TO THE PATIENT REQUESTED. PATIENT HAD NO OTHER CARE NEEDS FROM THIS RN AT THIS TIME. CALL LIGHT IN REACH.
--- NOTE | 2022-09-04 13:00 | NUR ---
Spoke with Cecy, she cont. to want placement for rehab. Let her know I will follow up with [facility] to check if they can accept this pt. Called jaxson left a message for Aniyah at [facility].
--- NOTE | 2022-09-04 14:15 | NUR ---
THIS RN IN TO SEE PATIENT. PATIENT SAYS SHE IS FEELING MUCH BETER AND PAIN AT 4/10 IN HER RIGHT ARM AND SHE IS COMFORTABLE THERE, BUT WANTS TO MAKE SURE SHE TAKES THE TYLENOL AND OXYCODONE TOGETHER WHEN SHE NEEDS PAIN MEDS. PATIENT AFTERNOON ASSESSMENT COMPLETE. PATIENT DENIES ANY OTHER CARE NEEDS AT THIS TIME. RIGHT ARM ELEVATED ON A PILLOW FOR COMFORT. CALL LIGHT IN REACH. PATIENT SAYS SHE JSUT WANTS TO "NAP".
--- NOTE | 2022-09-04 15:30 | NUR ---
Received a call from [facility], she states pt looks good for admission. She does state concern, there is a note pt received infusions [facility] and she was not sure what the infusions were. We will check with the [facility]. Luis Daniel NEAL was able to speak with the [facility]. Pt was receiving Iron infusions, but no other treatments. Called and left a message withthe update for [facility]. Luis Daniel will fax notes from the [facility] when received.
--- NOTE | 2022-09-04 15:31 | NUR ---
PATIENT CALLED REQUESTING TYLENOL FOR PAIN IN HER RIGHT THIGH AND BUTTOCKS. PO TYLENOL GIVEN AND PATIENT REPOSITIONED TO COMFORT IN BED, WITH RIGHT ARM ELEVATED ON A PILLOW. PATIENT DENIES ANY OTHER CARE NEEDS AT THIS TIME. CALL LIGHT IN REACH.
--- NOTE | 2022-09-04 16:09 | NUR ---
SPOKE WITH BIJU FROM [facility]. THEY ARE REQUESTING WHAT MEDICATIONS PATIENT IS RECEIVING THROUGH ONCOLOGY. CALLED [facility], SPOKE WITH DIANE. PATIENT HAS RECEIVED IV IRON INFUSIONS, NOTHING CURRENTLY BEING ORDERED OR GIVEN. SHE FAXED OFFICE NOTE. FAXED ONCOLOGY NOTES TO BIJU AT [facility], WITH FAX CONFIRMATION.
--- NOTE | 2022-09-04 17:50 | NUR ---
THIS RN IN TO CHECK ON PATIENT PAIN IN THE RIGHT THIGH AND BUTTOCK DOWN TO 3/10 AND SHE IS COMFORTABLE, BUT WANTS THE OXYCODONE FOR RIGHT ARM PAIN 5/10 AT THIS TIME AND THIS WAS GIVEN. PATIENT'S ICE WATER REFILLED FOR HER. NEW ICE PACK PLACED IN PILLOWCASE TO PATIENT'S RIGHT UPPER ARM. PATIENT DENIES ANY OTHER CARE NEEDS AT THIS TIME. CALL LIGHT IS IN REACH.
--- NOTE | 2022-09-04 18:12 | NUR ---
PATIENT IN BED RESTING AT THIS TIME. VITALS AND I&O'S CHARTED. CALL LIGHT IN REACH. NO FURTHER NEEDS AT THIS TIME.
--- NOTE | 2022-09-04 19:15 | NUR ---
REPORT RECEIVED FROM ELISSA CARMONA. pt RATES PAIN 5/10 IN RIGHT ARM. RESTING IN BED. CALL LIGHT IN REACH. ICE PACK ON RIGHT ARM, ARM ELEVATED ON PILLOW.
--- NOTE | 2022-09-04 19:50 | NUR ---
ASSISTED PRIMARY RN NATALY. PATIENT GOT UP STANDING BY THE EDGE OF THE BED WHILE BED LINEN CHANGING. PATIENT USED THE JANETT WALKER. PATIENT IS BACK IN BED. V/S AND I&O'S TAKEN AND RECORDED. PATIENT TOLERATED WELL BUT SLOW IN GETTING UP.
--- NOTE | 2022-09-04 19:53 | NUR ---
PRN TYLENOL ADMINISTERED FOR 5/10 REPORTED PAIN IN RIGHT ARM. ASSESSMENT COMPLETE. ASSISTED pt TO USE BED TRAYLOR FOR VOID, SPILLAGE IN BED. LINENS CHANGED. pt ABLE TO STAND AT SIDE OF BED WITH HEMIWALKER. OUT OF BED INDEPENDENTLY, SBA. BACK IN BED. VSS. CALL LIGHT IN REACH.
--- NOTE | 2022-09-04 22:19 | NUR ---
CHECKED ON pt. RESTING IN BED AWAKE, WATCHING TV. NO REQUESTS AT THIS TIME. CALL LIGHT IN REACH.
--- NOTE | 2022-09-04 22:48 | NUR ---
PATIENT CALLED TO USE THE BED TRAYLOR. PATIENT VOIDED 275 ML OF CLOUDY YELLOW URINE. NO OTHER CARE OR NEEDS AT THIS TIME.
--- NOTE | 2022-09-05 00:23 | NUR ---
CALL LIGHT ANSWERED. PRN PAIN MEDICATION ADMINISTERED FOR 6/10 PAIN IN RIGHT ARM. PRN SLEEP MEDICATION ADMINISTERED. ICE WATER REFILLED. ASSISTED pt TO REPOSITION RIGHT ARM, ELEVATED ON PILLOW. NEW ICE PACK PLACED ON ARM. CALL LIGHT IN REACH.
--- NOTE | 2022-09-05 01:32 | NUR ---
CHECKED ON pt. RESTING IN BED WITH EYES CLOSED, BREATHING UNLABORED. RIGHT ARM ELEVATED ON PILLOW. NO DISTRESS NOTED.
--- NOTE | 2022-09-05 03:42 | NUR ---
CALL LIGHT ANSWERED. pt ASSISTED TO USE BED TRAYLOR FOR VOID. ASSESSMENT COMPLETE. NEW ICE PACK ON RIGHT ARM, RIGHT ARM ELEVATED ON PILLOW. ASSISTED pt TO REPOSITION IN BED. DRINK OF WATER OFFERED. LIGHTS OFF IN ROOM. CALL LIGHT IN REACH.
--- NOTE | 2022-09-05 06:18 | NUR ---
CALL LIGHT ANSWERED. pt COMPLAINS OF PAIN IN RIGHT ARM. DOES NOT RATE PAIN, "I DONT KNOW, IT JUST HURTS". PRN PAIN MEDICATION ADMINISTERED. NEW ICE PACK PLACED ON RIGHT ARM. ARM ELEVATED ON PILLOW. VSS. pt DENIES TOILETING NEEDS. CALL LIGHT IN REACH.
--- NOTE | 2022-09-05 09:00 | NUR ---
REPORT RECEIVED FROM NIGHT RN AND PT. CARE RESUMED. PT. IS ALERT AND ORIENTED TO ALL. SHE C/O OF RIGHT FOOT PAIN THAT SHE STATES IS CHRONIC AND RELATED TO A LEG SURGERY. GABAPENTIN ADMIN. ASSESSMENT COMPLETED. DISCUSSED BED BATH, PAIN MANAGEMENT AND ACTIVITY. LEFT RESTING WITH CALL LIGHT IN REACH.
--- NOTE | 2022-09-05 10:56 | NUR ---
SPOKE WITH [facility] ADMITTING BY PHONE. THEY REVIEWED CHART AND CAN TAKE PATIENT TODAY BETWEEN 2:30-3:00PM. WOULD LIKE A RAPID COVID DONE IF POSSIBLE. IS READY FOR ORDER TO REVIEW WHEN AVAILABLE. UPDATED STAFF, GABBI ORDERING COVID SWAB AND DR JUNE AWARE ORDERS ARE NEEDED.
--- NOTE | 2022-09-05 11:04 | NUR ---
RT COLLECTED RAPID COVID 19 SWAB AT THIS TIME WITH NO COMPLICATIONS.
[2022-09-05] MEDS ORDERED: OXYCODONE HCL5 MG PO (11:34)
[2022-09-05] MEDS ORDERED: VITAMIN D325 MCG PO (11:36)
[2022-09-05] MEDS ORDERED: MELATONIN3 MG PO (11:36)
[2022-09-05] MEDS ORDERED: STIMULANT LAXA1 EACH PO (11:37)
[2022-09-05] MEDS ORDERED: GABAPENTIN100 MG PO (11:40)
--- NOTE | 2022-09-05 12:33 | NUR ---
SPOKE WITH PATIENT IN ROOM REGARDING TRANSPORT AROUND 2-3PM TODAY TO [facility]AB [facility]. PATIENT WAS EATING LUNCH. SHE STATES SHE COULDN'T GET AHOLD OF HER DAUGHTER TO LET HER KNOW, ASKED IF I COULD CALL HER FAMILY. CALLED [employer] WHO IS PERSON TO NOTIFY ON FACESHEET, LEFT MESSAGE. [facility] ARE[facility] CALLED AND ORDERS ARE GOOD. QUESTIONS ANSWERED THAT IT APPEARS PT DID NOT HAVE COVID VACCINES OR FLU SHOT. RAPID COVID SCREEN NEGATIVE AND INCLUDED IN CHART PACK.
--- NOTE | 2022-09-05 13:05 | NUR ---
Transfer from recliner to bed per patient request. Tylenol provided per patient request. Denies other needs at this time. States she is concerned children are unaware of her discharge, will discuss with Yancy Guallpa RN.
--- NOTE | 2022-09-05 13:13 | NUR ---
PT.'S DAUGHTER CONTACTED FOR TRANSPORT ONCE SHE IS DISCHARGED. DAUGHTER STATES SHE WILL BE HERE BETWEEN [phone] TO PICK HER UP.
--- NOTE | 2022-09-05 14:07 | NUR ---
IV REMOVED WITH CATH INTACT. VITALS STABLE. PT. ASSISTED WITH DRESSING AND AWAITING TRANSPORT.
--- NOTE | 2022-09-05 15:17 | NUR ---
PT. LEFT WITH ALL BELONGINGS VIA WHEELCHAIR WITH TRANSPORT AND RN.
== END 2022-09-05 15:10 | DRG 493 ==
LOC: ED 13:03 → MS 13:05
PROVIDERS: Specialist; ADMIT Internal Medicine; ATTEND Internal Medicine
PROC: 0PSC04Z Reposition Right Humeral Head with Internal Fixation Device, Open Approach (ICD-10-PCS; principal; 2022-08-31 09:15)
DX: M80.021A Age-related osteoporosis with current pathological fracture, right humerus, initial encounter for fracture (principal); S42.291A Other displaced fracture of upper end of right humerus, initial encounter for closed fracture; Z20.822 Contact with and (suspected) exposure to COVID-19; D63.8 Anemia in other chronic diseases classified elsewhere; M06.9 Rheumatoid arthritis, unspecified; D50.9 Iron deficiency anemia, unspecified; J44.9 Chronic obstructive pulmonary disease, unspecified; E53.8 Deficiency of other specified B group vitamins; F17.210 Nicotine dependence, cigarettes, uncomplicated; Z96.642 Presence of left artificial hip joint; Z96.641 Presence of right artificial hip joint; Z79.899 Other long term (current) drug therapy; W18.39XA Other fall on same level, initial encounter; Y92.009 Unspecified place in unspecified non-institutional (private) residence as the place of occurrence of the external cause
CPT/HCPCS: 36415; 73030; 73060; 73502; 80053; 81001; 82306; 82728; 83540; 83550; 85025; 85060; 87502; 93005; 93010; 94640; 96374; 97161; 99284-25; A9270; C9803; J0690; J1100; J1170; J2704; J2795; U0003

== ENCOUNTER 2022-11-26 09:00 | Day surgery (SDC) | payer MEDICARE, OTHER ==
[~2022-11-26] VITALS: Ht 154.9 cm; Wt 40.0 kg
--- NOTE | ~2022-11-26 | OR ---
[facility] [address], [place] [address] Draft DATE OF OPERATION: 11/26/2022 SURGEON: Alcira Reyes MD PREOPERATIVE DIAGNOSIS: Painful prominent hardware, right shoulder. POSTOPERATIVE DIAGNOSIS: Painful prominent hardware, right shoulder. PROCEDURE PERFORMED: Removal of hardware, deep, right shoulder. POWER MANAGER: Megan Evans PA-C. Megan was present and critical for all portions of procedure. ANESTHESIA: MAC with local. BLOOD LOSS: 10 mL. BRIEF HISTORY: Mikayla is a 72-year-old, rheumatoid lady who underwent a rodding of her humerus. Two of the screws were backed out and were prominent under her skin laterally. I feared that this would cause skin compromise and discussed with her removal of the screws. Risks and benefits were discussed at length and she understands and wished to proceed. PROCEDURE IN DETAIL: Once consent was obtained she was taken to the operating room, left on the day surgery cart and the shoulder was prepped and draped in a standard sterile fashion. A field block with 0.25% Marcaine with epinephrine was then instituted and allowed to set up. Once this was set up a 1 inch incision was made overlying the screw, carried through skin and subcutaneous tissue. The deltoid muscle was split bluntly over the first screw and the screw was easily removed with the finger tips basically. The second screw was then rotated into position through the same split and the screw was removed. There was one more screw, but it appeared to be deep and still in the proper position. It was left alone. The wound was copiously irrigated with normal saline, closed with 3-0 Monocryl PATIENT NAME: MIKAYLA BENNETT OPERATIVE REPORT DATE OF : 52 REPORT #: [id number] PHYSICIAN: ALCIRA REYES MD PCP: NO PRIMARY CARE PHYSICIAN REPORT IS CONFIDENTIAL AND NOT TO BE RELEASED WITHOUT AUTHORIZATION [facility] [address] [place], [place] [address], [place] [address] Draft and Liqui[employer]. Wound was dressed with Allevyn and OpSite. She tolerated the procedure well. All sponge, needle, and instrument counts were correct. Alcira Reyes MD BA/RADHAL /[id number] Copies: ~ PATIENT NAME: MIKAYLA BENNETT OPERATIVE REPORT DATE OF : 52 REPORT #: [id number] PHYSICIAN: ALCIRA REYES MD PCP: NO PRIMARY CARE PHYSICIAN REPORT IS CONFIDENTIAL AND NOT TO BE RELEASED WITHOUT AUTHORIZATION
[~2022-11-26 09:00] MED LIST changes: +GABAPENTIN100 MG PO; +IRON325 M1 PO; +MELATONIN3 MG PO; +OXYCODONE HCL5 MG PO; +QVAR REDIHALE10.6 G1 INH; +STIMULANT LAXA1 EACH PO; +VITAMIN D325 MCG PO
[2022-11-26] MEDS ORDERED: HYDROCODON-ACE1 EA10 PO (11:22)
[2022-11-26] MEDS ORDERED: OXYCODONE HCL5 MG PO (11:34)
--- NOTE | 2022-11-26 11:35 | NUR ---
11/26/22 1135 Mary Ann Jason 1125- PT ARRIVES TO PACU AWAKE AND TALKING. PT REPORTS GENERALIZED PAIN THAT IS CHRONIC FOR HER. DENIES ANY RIGHT SHOULDER PAIN. PT DENIES WANTING THE SCREWS BACK FROM HER SURGERY. 1128- PT REPORTS HER "BOTTOM IS SORE". PT REPOSITIONED IN BED AND KNEES BENT. PT REPORTS THIS HELPS. 1132- PT IS CONCERNED ABOUT THE PAIN MEDICATION SHE IS BEING SENT HOME WITH. DR. MOLINA CALLED AND NOTIFIED. NEW ORDER GOING TO BE SENT PER DR. MOLINA.
--- NOTE | 2022-11-26 12:40 | NUR ---
PT AWAKE AND ALERT DENIES NAUSEA AND PAIN DAUGHTER AT BEDSID, PT DECLINES ANYTHING TO EAT OR DRINK.
--- NOTE | 2022-11-26 13:06 | NUR ---
PT DRESSED WITH HELP FROM DAUGHTER, PT UP TO COMMON WAS ABLE TO VOID 300ML OF CLEAR YELLOW URINE. DISCHARGE INSTRUCTIONS GIVEN BY ИРИНА BOWERS.
--- NOTE | 2022-11-26 13:54 | NUR ---
SANDY PEPPER CALLED AND UPDATED ABOUT PT HAVING A PCP APPOINTMENT AND OXYGENATION IN DAY SURGERY.
== END 2022-11-26 13:10 | disposition home or self-care (01) ==
LOC: DS 09:00
PROVIDERS: ATTEND Specialist
PROC: 2W5 Placement, Anatomical Regions, Removal (ICD-10-PCS; principal; 2022-11-26 11:45)
DX: T84.84XA Pain due to internal orthopedic prosthetic devices, implants and grafts, initial encounter (principal); D64.9 Anemia, unspecified; J44.9 Chronic obstructive pulmonary disease, unspecified; Z79.899 Other long term (current) drug therapy
CPT/HCPCS: J0690; J2704; J3010; J7121

== ENCOUNTER 2023-03-05 09:50 | Observation (INO) | payer MEDICARE, OTHER ==
[~2023-03-05] VITALS: Ht 154.9 cm; Wt 38.7 kg
[~2023-03-05 09:50] MED LIST changes: +HYDROCODON-ACE1 EA10 PO; +LO-DOSE ASPIRIN81 MG PO
--- OUTSIDE RECORDS SUMMARY | 2023-03-05 09:52 | XMS ---
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 Simone has no Care Guidelines for this patient. [place] VISIT COUNT (12 MO.) 1 [facility] 5 [facility] NOTE: Visits indicate total known visits. ED/C VISIT TRACKING (12 MO.) [facility]05[facility]2023 09[facility] COMPLAINT: - CHEST PAIN 02/13/2023 11:51 [facility] [place] TYPE: Emergency COMPLAINT: - POSS STROKE DIAGNOSES: - Adult failure to thrive - Chronic obstructive pulmonary disease, unspecified - Contact with and (suspected) exposure to COVID-19 - Nicotine dependence, unspecified, uncomplicated - Other long distance operator (current) drug therapy 10/10/2022 00:38 [facility] [place] TYPE: Emergency DIAGNOSES: - Pleurisy - CHEST PAIN 08/28/2022 13:04 [facility] [place] TYPE: Emergency COMPLAINT: - EXTREMITY PAIN/INJURY 04/27/2022 16:44 [facility] [place] TYPE: Emergency COMPLAINT: - SHORTNESS OF BREATH DIAGNOSES: - Anemia, unspecified - Chronic obstructive pulmonary disease with (acute) exacerbation - Nicotine dependence, unspecified, uncomplicated - Shortness of breath 04/26/2022 14:21 [facility] [place] TYPE: Emergency COMPLAINT: - POSS BLOODCLOT IN LUNG DIAGNOSES: - Anemia, unspecified - Contact with and (suspected) exposure to COVID-19 - Nicotine dependence, unspecified, uncomplicated - Shortness of breath INPATIENT VISIT TRACKING (12 MO.) 08/29/2022 15:30 [facility] [place] TYPE: Medical Surgical COMPLAINT: - RIGHT HUMERUS FRACTURE DIAGNOSES: - Age-related osteoporosis with current pathological fracture, right humerus, initial encounter for fracture - Age-related osteoporosis with current pathological fracture, right humerus, initial encounter for fracture - Anemia in other chronic diseases classified elsewhere - Anemia in other chronic diseases classified elsewhere - Chronic obstructive pulmonary disease with (acute) exacerbation - Chronic obstructive pulmonary disease, unspecified - Chronic obstructive pulmonary disease, unspecified - Contact with and (suspected) exposure to COVID-19 - Contact with and (suspected) exposure to COVID-19 - Deficiency of other specified B group vitamins - Deficiency of other specified B group vitamins - Iron deficiency anemia, unspecified - Iron deficiency anemia, unspecified - Nicotine dependence, cigarettes, uncomplicated - Nicotine dependence, cigarettes, uncomplicated - Other displaced fracture of upper end of right humerus, initial encounter for closed fracture - Other fall on same level, initial encounter - Other fall on same level, initial encounter - Other long distance operator (current) drug therapy - Other long distance operator (current) drug therapy - Presence of left artificial hip joint - Presence of left artificial hip joint - Presence of right artificial hip joint - Presence of right artificial hip joint - Rheumatoid arthritis, unspecified - Rheumatoid arthritis, unspecified - Unspecified place in unspecified non-institutional (private) residence as the place of occurrence of the external cause - Unspecified place in unspecified non-institutional (private) residence as the place of occurrence of the external cause [email or web address]
--- NOTE | 2023-03-05 15:43 | NUR ---
PT ARRIVED FROM ER. PT TRANSFERED TO BED WITH 4 PERSON ASSIST, SLIDE TRANSFER. MOBILITY IMPAIRED, BMAT LEVEL 2, SIGNIFICANT RHEUMATOID ARTHRITIS SEEN IN JOINTS. FINGERS, WRISTS AND TOES, MALFORMED. PT REPORTS 6/10 PAIN "UNDER MY (R) BREAST." SEE MAR FOR MEDICATION GIVEN. NITRO PATCH TAKEN OFF BY EVIN SOSA RN. REPORT RECEIVED FROM IAN. PT ALERT AND OREINTED TO ALL. PT ABLE TO LIFT LEGS OFF THE BED ADN RAISE ARMS. BUILDING ADMIN MALFOMRED. PLANTAR AND DORSI FLEXION SEEN. PT REPORTS NORMAL SENSATION IN ALL EXTREMITIES. GENERALIZED WEAKNESS EVIDENT. PT REPORTS SHE USES A WHEELCHAIR AT BASELINE AND HAS BEEN UNABLE TO W[place]KE. LUNG SOUNDS CLEAR IN UPPER LOBES, CRACKELS HEARD IN LOWER LOBES. PT DENIES COUGH. PT REMAINS ON 2L O2 BY NC TO MAINTAIN OXGYEN SATURATIONS ABOVE 90%. I.S. PROVIDED, PT REACHES 300ML X5. PURE WICK CATHETER PLACED, PT REPORTS NEED TO VOID AND EDUCATION DONE. PT VOIDS INTO PURE WICK WITHOUT ISSUE. PTS DAUGHTER AT BEDSIDE BREIFLY, UPDATED ON PTS STATUS AND PLAN OF CARE. PT EATING A SANDWICH, APPLESAUCE AND MILK. PUSH BUTTON CALL LIGHT WITH PT. PT DEMONSTRATES USE. PT ASSISTED WITH FINDING HER TV STATION. NO ADDITIONAL REQUESTS OR COMPLAINTS. CALL LIGHT WITHIN REACH. BED RAILS UP.
[2023-03-05 15:53] VITALS: BP 109/66
[2023-03-05] MEDS ORDERED: OXYCODONE HCL5 MG PO (16:24)
[2023-03-05] MEDS ORDERED: CEPHALEXIN500 MG PO (16:25)
[2023-03-05] MEDS ORDERED: TRIAMCINOLONE A15 G3 TOP (16:26)
[2023-03-05] MEDS ORDERED: DICLOFENAC SOD100 G1 TOP (16:26)
--- NOTE | 2023-03-05 16:41 | NUR ---
THIS RN TO ROOM TO CHECK ON PT. PT RESTING WITH EYES CLOSED. PT AWAKENS TO MOVEMENT IN THE ROOM. MEDICATION GIVEN. PT REPORTS CHEST PAIN NOW AT 4/10, WHICH SHE STATES IS "TOLERABLE." PT REPORTS PAIN "COMES AND GOES." MEDICATION GIVEN. RT CALLED AND UPDATED REGARDING SCHEDULED BREATHING TREATMENETS. NO ADDITIONAL REQUESTS OR COMPLAINTS. CALL LIGHT WITHIN REACH. BED RAILS UP.
[2023-03-05] MEDS ORDERED: SENNA-S 8.6-501 EACH PO (17:10)
--- NOTE | 2023-03-05 17:28 | NUR ---
MED REC COMPLETE
--- NOTE | 2023-03-05 17:45 | NUR ---
THIS RN TO ROOM TO CHECK ON PT. PT ATE ~10% OF DINNER IN ADDITION TO SANDWICH BOX EATEN EARLIER. PT REPORTS 6/10 PAIN THAT IS "STEADY NOW." PT DENIES NEED FOR ADDITOINAL PAIN MEDICATION. HEAD OF BED ELEVATED TO 30 DEGREES. PT DENIES ADDITIONAL REQUESTS OR COMPLAINTS. CALL LIGHT WITHIN REACH. BED RAILS UP.
[2023-03-05 18:11] VITALS: BP 122/65
--- NOTE | 2023-03-05 18:15 | NUR ---
DR JUNE UPDATED ON PT STATUS, PAIN, AND CT SCAN. NO NEW ORDERS AT THIS TIME.
--- NOTE | 2023-03-05 18:35 | NUR ---
THIS RN TO ROOM TO CHECK ON PT. PT RESTING WITH EYES CLOSED. RESPIRATION EVEN AND UNLABORED. HEAD OF BED ELEVATED TO 30 DEGREES. BED RAILS UP. CALL LIGHT WITHIN REACH. PT ALLOWED TO REST.
--- NOTE | 2023-03-05 19:46 | NUR ---
REPORT RECEIVED FROM DAY RN. PT APPEARS TO BE ASLEEP. SHE HAS HER CALLL LIGHT IN REACH. BED IN LOW POSITION.
[2023-03-05 20:14] VITALS: BP 104/67
--- NOTE | 2023-03-05 20:45 | NUR ---
PT WAS GIVEN A SNACK OF A PROTEIN BAR. PT ATE HALF OF IT. CALL BUTTON IN REACH.
--- NOTE | 2023-03-05 23:53 | NUR ---
PT APPEARS TO BE ASLEEP. AB IS DRAINING LIGHT YELLOW URINE. CALL BUTTON IS IN HER RIGHT HAND.
--- NOTE | 2023-03-06 01:50 | NUR ---
PT WAS TURNED CLEANED AND A NEW PUREWICK WAS PLACED. PT'S ATTENDS WERE WET PUREWICK HAD MOVED.PT WAS BOOSTED UP IN BED. AND TURNED TO HER LEFT SIDE.CALL BUTTON IN REACH.
[2023-03-06 02:01] VITALS: BP 107/85
--- NOTE | 2023-03-06 02:06 | NUR ---
PT IS REFUSING OFFERS OF FOOD AND DRINK. INTAKE IS POOR. PT NEEDS A NUTRITIONAL CONSULT.
[2023-03-06 05:49] VITALS: BP 114/61
--- NOTE | 2023-03-06 07:30 | NUR ---
REPORT RECEIVED FROM ELISSA CULP. PT RESTING IN BED ON LEFT SIDE WITH EYES CLOSED, RESPIRATIONS EVEN AND UNLABORED. BED RAILS UP. CALL LIGHT WITHIN REACH. PT ALLOWED TO REST UNDSTURBED.
--- NOTE | 2023-03-06 07:40 | NUR ---
DR JUNE CALLED REGARDING LOW URINE OUTPUT. NO NEW ORDERS AT THIS TIME, STATES TO ENCORUAGE PO FLUIDS. TORCH CUTTER UPDATED AND WILL ASSIST PT WITH DRINKING WATER OR PREFERED BEVERAGE.
--- NOTE | 2023-03-06 09:31 | NUR ---
MORNING ASSESSMENT AND MEDICATION DUE. PT RESTING IN BED, SEMIFOWLER POSITION. PT WAS ABLE TO EAT 100% OF BREAKFAST AND DRINK A CARTON OF MILK. ADDITIONAL MILK AND JUICE PROVIDED. PT REPORTS DEPENDS IS WET. MARISEL CARE DONE, DEPENDS CHANGED, PURE WICK CHANGED. 100ML URINE NOTED IN CANISTER. SMALL 0.75CM SORE NOTED ON LEFT HIP, OVER NELIA PROMINACE. ALELLEVYN APPLIED. SKIN OTHEWISE UNCHANGED. HEART TONES REGULAR BUT FOR OCCATIONAL MISSED BEAT. PT ALERT AND OREINTED TO ALL, INCLUDING EXACT DATE. LUNG SOUNDS CLEAR BUT FOR CRACKELS NOTED IN LEFT LOWER LOBE. PT REPORTS 4/10 PAIN IN CHEST, "ONLY WHEN I TAKE A REALLY BIG DEEP BREATH IN." PT DENIES NEED FOR PAIN MEDICATION. I.S. USE DEMONSTRATED REACHIGN 300ML X5. MOIST COUGH AT TIMES. NO SUPTUM NOTED. PT REMAINS ON 1L O2 BY [place] WITH OXGYEN SATUARTIONS ABOVE 90%. RESTING IN BED WITH HEAD OF BED AT 25 DEGREES. NO ADDIITONAL REQUESTS OR COMPLAINTS. CALL LIGHT WIHTIN REACH. BED RAILS UP.
[2023-03-06 09:32] VITALS: BP 92/63
--- NOTE | 2023-03-06 10:36 | NUR ---
THIS RN TO ROOM TO CHECK ON PT. PT DENIES PAIN AND NAUSEA. PT REQUESTS ADDITIONAL JUICE, PROVIDED. WARM BLANKET PROVIDED. PT REPORTS ECHO WAS DONE. PT DENIES ADDITIONAL REQUESTS OR COMPLAINTS. CALL LIGHT WITHIN REACH. BED RAILS UP. HEAD OF BED AT 25 DEGREES
--- NOTE | 2023-03-06 11:41 | NUR ---
THIS RN TO ROOM TO CHECK ON PT. PT RESTING WITH EYES CLOSED IN SEMIFOWLER POSITION. STRAIGHT CUTTER MACHINE TO BEDSIDE AND PT AWAKENS. PT DENIES PAIN AND NAUSEA "EXCEPT WHEN I BREATH DEEP." REPORTS PAIN IS UNCHANGED, DENIES NEED FOR PAIN MEDICATION. PT TALKING WITH ANGELIC STRAIGHT CUTTER MACHINE. CALL LIGHT WITHIN REACH. BED RAILS UP.
--- NOTE | 2023-03-06 14:30 | NUR ---
AFTERNOON ASSESSMENT DUE. DR JUNE TO BEDSIDE FOR ROUNDS. DR JUNE UPDATED ON PT STATUS AND PLAN OF CARE. PT REPORTS 5/10 PAIN IN RIGHT CHEST AT THIS TIME, SEE MAR FOR MEDICATION GIVEN. PT REMAINS ALERT AND ORIENTED TO ALL. PT REMAINSIN BED, ASSISTED WITH REPOSITIONING. PTS DAUGHTER BROUGHT WHEELCHAIR TO BEDSIDE FOR USE WITH PHYSICAL THERAPY. LUNG SOUNDS CLEAR BUT FOR LLL WHICH IS DEMINISHED WITH AN OCCATIONAL CRACKEL. I.S. USE DEMONSTRATED PT CONTINUES TO REACH ONLY 200ML. SHALLOW RESPIRATIONS. PT REMAINS ON 1L O2 BY NC WITH OXGYEN SATURATIONS ABOVE 90%. HEART TONES REGULAR BUT FOR AN OCCATIONAL MISSED BEAT. ABDOMEN REMAINS SOFT AND NON TENDER. VERY MINIMAL URINE OUTPUT, NOT QUANTITY SUFFICIENT. PURE WICK REMAINS IN PLACE. MD AWARE AND STATES TO ENCORUAGE PO FLUIDS. FLUIDS AT BEDSIDE. PT CONTINUES TO USE BOTH HANDS/WRISTS TO LIFT CUPS. SOFT TEXTURE ADDED TO PTS DIET PT STATES SHE CANNOT CHEW FOOD. NO SWALLOWING ISSUES SEEN. SKIN UNCHNAGED. ALLEVYN TO LEFT HIP REMAINS IN PLACE. NO ADDITIONAL REQUESTS OR COMPLAINTS. CALL LIGHT WIHTIN REACH. CASE MANAGEMENT TO BEDSIDE TO VISIT WITH PT.
[2023-03-06 14:33] VITALS: BP 113/61
--- NOTE | 2023-03-06 15:00 | NUR ---
Spoke with pt and her daughter, Chelle. Chelle is pts cg during the day and drives from [place] to care for mom. She leaves in the afternoon and grandson stays with pt and makes dinner. He leaves when pt goes to bed. Pt lives in [facility] [place] in a house with a porch. To leave the home the family take her down the steps in a wc and then lift her into a car. Pt is cachetic and 85 pounds. She has recently lost another 5 pounds to this weight. She denies hunger. Instrument Processing Tech visited with this pt. I gave the pt and daughter recipe for high alonzo, low volume drinks and encouraged high calorie food. in the past pt used a cane, walker, and shower chair. She is wc bound now. She states her shower does not drain, daughter gives her sponge bath. Pt also states she lost most of her weight due to bad teeth and could not eat. She does not have any teeth now. Daughter has questions regarding cg. We discussed payment through the state, daughter has the forms but states she has a felony. I don't think the pending sale to [facility] will hire with a history of felony. I will call and ask. Also I will give her a card for [facility] and the phone number for [employer] transport. We discussed placement and how this would work as pt owns her home. Let them know, for a cg or placement, the state requires a lean on the home and the home to be sold to pay back the state on pts . Pt states she will never agree to this. Daughter in agreement. Pt does agree to try meals on wheels. [facility] in [facility]. Pt. plans on dc to home when cleared medically. OT has been ordered to eval for eating. Pt has rheumatoid arthritis and has difficulty getting food with a spoon. Will follow up with this pt tomorrow.
--- NOTE | 2023-03-06 15:15 | NUR ---
THIS RN TO ROOM TO CHECK ON PT. PT FINISHED VISITING WITH CASE MANAGEMENT. PT AND DAUGHTER STATE THEIR QUESTIONS HAVE BEEN ANSWERED. PT STATES PAIN IS IMPROVING NOW 02/11 AND "GETTING BETTER." PT REPORTS SHE IS READY FOR A BED BATH NOW. LIBRARY ASSISTANT UPDATED. NO ADDITIONAL REQUESTS OR COMPLAINTS. CALL LIGHT WITHIN REACH. BED RAILS UP.
--- NOTE | 2023-03-06 15:57 | NUR ---
THIS AUDITING SPECIALIST W/FAUSTO WARD ASSISTED PT IN FULL BED BATH W/SOAP/WATER/WASHCLOTHS. SHAMPOO CAP, LOTIONS, BARRIER CREAMS. NEW PUREWICK/BRIEF PLACED. FULL LINEN CHANGE. ORAL CARE DONE INDEPENDENTLY AFTER SET UP W/MOUTHWASH. PT WAS ABLE TO HELP ROLL SIDE TO SIDE W/O ANY SIGNS OF DISTRESS OR DESAT IN O2 BUT HAD SIGNS OF WEAKNESS IN PULLING HERSELF. SHE DID NOT WANT A GOWN, ONLY A SHEET. BELONGINGS & CALL LIGHT IN REACH.
--- NOTE | 2023-03-06 16:01 | NUR ---
THIS RN TO ROOM TO CHECK ON PT. PT FINISHED WITH BED BATH AND REPORTS SHE FEELS "MUCH BETTER." PT REPORTS RIGHT CHEST PAIN AT 4/10 AND STATES "IT HARDLY EVEN HURTS WHEN I BREATH IN." PT DENIES NEED FOR ADDITIONAL PAIN MEDICAITON. RT TO BEDSIDE AND PT WEANED TO ROOM AIR, TOLERATING WELL WITH OXGYEN SATURATIONS ABOVE 90%. PT DENIES ADDITIONAL REQUESTS OR COMPLAINTS. CALL LIGHT WIHTIN REACH. WARM BLANKET PROVIDED. BED RAILS UP.
--- NOTE | 2023-03-06 16:28 | EKG ---
[facility] [address] [place] [address] Signed Sinus tachycardia Minimal voltage criteria for LVH, may be normal variant ( R in aVL ) T wave abnormality, consider inferior ischemia Abnormal ECG When compared with ECG of 13-FEB-2023 12:15, T wave inversion now evident in Inferior leads Nonspecific T wave abnormality now evident in Lateral leads Confirmed by LIDYA JUNE MD ([id number]) on 03/06/2023 4:27:39 PM Electronically Signed By: LIDYA JUNE MD 03/06/23 1628 PATIENT NAME: MIKAYLA BENNETT Electrocardiogram DATE OF : 52 PHYSICIAN: LIDYA JUNE MD REPORT #: [id number] REPORT IS CONFIDENTIAL AND NOT TO BE RELEASED WITHOUT AUTHORIZATION
--- NOTE | 2023-03-06 16:34 | NUR ---
PT HERE FOR HYPOXIA. PT REMAINS BED BOUND THIS SHIFT. PHYSICAL AND OCCUPATIONAL THERAPY ORDERED, AWAITING EVALUATION. PT TOLERATING REGULAR/SOFT/FINGER FOOD DIET WELL. PT ABLE TO FEED SELF WITH SPOON, AWIATING OCCUPATIONAL THERAPY. PT WEANED TO ROOM AIR THIS EVENING BY RT. SOLUMEDROL GIVEN, SCHEDULED NEB TREATMENTS. BED BATH PERFORMED THIS SHIFT. LUNG SOUNDS CLEARING. URINE OUT PUT REMAINS LOW, PO FLUIDS ENCORUAGED. PURE WICK CATHETER IN PLACE, CHANGED X2 THIS SHIFT. MARISEL CARE DONE. ECHOCARDIOGRAM PERFORMED, AWATING RESULTS. RETROPERIOTNEAL LIMITED STUDY PERFORMED. PTS FAMILY AT BEDSIDE AND UPDATED ON PLAN OF CARE. CASEMANAGEMENT INVOLVED. PT USES BUTTON CALL LIGHT AND MAKES NEEDS KNOWN.
--- NOTE | 2023-03-06 16:38 | NUR ---
Called BHUPENDRA and gave pts name, phone number, and date of . Also received a text from Dr. Mcconnell. He states concerns as daughter had spoken with him out of the room. She let him know she is having difficulty caring for mom as she drives from [place]. com. cn daily. Updated to my conversation about pt not wanting to sell her home to pay the state back for cg or placement.
--- NOTE | 2023-03-06 16:43 | NUR ---
Called DHS to check if State Paid cg can have a felony. They were unable to answer and stated she would need to submit the paperwork and then they would let her know. Gave DHS card and [facility] transport number.
--- NOTE | 2023-03-06 17:12 | NUR ---
MEDICATION DUE. THIS RN TO ROOM. PT REPOSITIONED IN BED, BOOSTED WITH HEAD ELEVATED TO 40 DEGREES FOR DINNER. DINNER DELIVERED. MEDICATION GIVEN. PT DENIES ADDITIONAL REQUSTS OR COMPLAINTS. CALL LIGHT WITHIN REACH. BED RAILS UP.
[2023-03-06 18:04] VITALS: BP 118/55
--- NOTE | 2023-03-06 18:39 | NUR ---
HOURLY ROUNDING: PT REMAINS IN BED IN SEMIFOWLER [facility], HEAD OF BED AT 35 DEGREES. PT DENIES PAIN WHILE AT REST. REPORTS 4/10 PAIN WITH DEEP INSIPRATION BUT DENINES NEED FOR PAIN MEDICAITON. NOTED THAT PT CONTINUES TO HAVE VERY LOW URINE OUPUT. PT DRINKING FLUIDS, GRAPE JUICE REFILLED. DR. BALDERRAMA CALLED AND UPDATED. NO NEW ORDERS AT THIS TIME. PT DENIES ADDITIONAL REQUESTS OR COMPLAINTS. CALL LIGHT WITHIN REACH. BED RAILS UP.
[2023-03-06 20:45] VITALS: BP 107/61
--- NOTE | 2023-03-06 21:15 | NUR ---
PT IS BOOSTED UP IN BED. ATTENDS CHANGED, SKIN CLEANED AND NEW PUREWICK PLACED. ATTENDS WERE WEIGHED FOR MORE ACCURATE OUTPUT. PT HAS A RED CALL BUTTON CLOSE TO HAND.
--- NOTE | 2023-03-06 21:15 | NUR ---
CLEANED AND CHANGED PT'S ATTENDS AND PUREWICK. ATTENDS WERE WET. ATTENDS WEIGHT WAS 77 GRAMS.
--- NOTE | 2023-03-06 23:16 | NUR ---
PT APPEARS TO BE RESTING WITH EYES CLOSED. CALL BUTTON CLOSE TO HAND.
--- NOTE | 2023-03-06 23:51 | NUR ---
PT PAAEARS TO BE RESTING WITH EYES CLOSED. CALL BUTTON IN REACH. BEDSIDE TABLE WITH DRINKS IN REACH.
--- NOTE | 2023-03-07 03:05 | NUR ---
COVERED PT WITH A WARMED BLANKET AND TURNED DOWN OVERHEAD LIGHTS. CALL BUTTON IN REACH. PT STATES SHE DIDNT KNOW SHE FELT SO COLD, BETTER NOW.
[2023-03-07 05:32] VITALS: BP 98/60
--- NOTE | 2023-03-07 05:47 | NUR ---
in pt room. vitals and is and os complete. philip puri brief changed. pt refused bb at this time. brief weighed on scale and weighs 136g. no needs. call light within reach
--- NOTE | 2023-03-07 07:44 | NUR ---
Patient resting in bed, eyes closed, respirations even and non labored. Patient has no distress at this time. Personal supplies and call light within reach. Close to RN station.
--- NOTE | 2023-03-07 08:50 | NUR ---
Followed up with pt. Spoke with Cecy. Again verified that she does not want a state paid caregiver and discussed as she owns a home the state would put a lean on it. Pt clearly states she does not want this. Dauhter not in room. Concerns have been expressed from staff about pts well being. La Nena let them know that this is the pt choice and pt is of sound mind. Nurse called and asked if [employer] Whe[employer] is soft food for the pt and La Nena told the nurse that most foods are a protein with gravy that the pt had previously stated might work. [employer] does not do specialty meals.
--- NOTE | 2023-03-07 09:10 | NUR ---
OXYCODONE 5MG PO admin for reports of joint pain. Patient provided with an ensure at this time. No further needs. Call light within reach.
[2023-03-07 09:13] VITALS: BP 116/54
[2023-03-07] MEDS ORDERED: IPRAT-ALBUT 0.5-3 ML INH (11:22)
[2023-03-07] MEDS ORDERED: PREDNISONE20 MG PO (11:25)
[2023-03-07 12:39] VITALS: BP 121/52
== END 2023-03-07 12:40 | disposition home or self-care (01) ==
LOC: ED 09:50 → MS 09:51
PROVIDERS: ADMIT Internal Medicine; ATTEND Internal Medicine
DX: J96.21 Acute and chronic respiratory failure with hypoxia (principal); J43.9 Emphysema, unspecified; M06.9 Rheumatoid arthritis, unspecified; Z87.891 Personal history of nicotine dependence; Z79.82 Long term (current) use of aspirin; Z79.899 Other long term (current) drug therapy; Z20.822 Contact with and (suspected) exposure to COVID-19
CPT/HCPCS: 36415; 71045; 71260; 76775; 80053; 81001; 83735; 83880; 84484; 85025; 85379; 85610; 87502; 93005; 93010; 93306; 94640; 94667; 94668; 94760; 97167; A9270; C9803; J1940; J2270; J2920; J7512; Q9967; U0003